=== PATIENT | female | born 1985 | race Caucasian/White ===

== ENCOUNTER 2020-06-27 05:38 | Emergency (ER) | payer OTHER ==
[~2020-06-27 05:38] MED LIST: PERCOCET 5/325 T1 EA PO
[2020-06-27] MEDS ORDERED: IBUPROFEN600 MG PO (07:02)
[2020-06-27] MEDS ORDERED: KEFLEX CAP 250250 MG PO (07:02)
[2020-06-27] MEDS ORDERED: DIFLUCAN150 MG PO (08:16)
== END 2020-06-27 08:26 | disposition home or self-care (01) ==
LOC: ER1 05:38
DX: S01.511A Laceration without foreign body of lip, initial encounter (principal); W22.8XXA Striking against or struck by other objects, initial encounter
CPT/HCPCS: 12011; 70486; 96372; 99283

== ENCOUNTER 2020-10-28 03:53 | Emergency (ER) | payer OTHER ==
[~2020-10-28 03:53] MED LIST changes: +DIFLUCAN150 MG PO; +IBUPROFEN600 MG PO; +KEFLEX CAP 250250 MG PO
[2020-10-28 04:30] LABS: HEMOGLOBIN 14.4 gm/dl (12.3-15.3); RED BLOOD COUNT 4.52 M/UL (4.00-5.10); WHITE BLOOD COUNT 10.4 K/UL (4.5-11.0)
[2020-10-28 04:57] LABS: BUN/CREATININE RATIO 25 (0-10)
[2020-10-28] MEDS ORDERED: REGLAN10 MG PO (05:20)
[2020-10-28] MEDS ORDERED: BENTYL 20MG TAB20 MG PO (05:20)
== END 2020-10-28 05:36 | disposition home or self-care (01) ==
LOC: ER1 03:53
PROVIDERS: Physician Assistant
DX: O20.0 Threatened abortion (principal); O21.9 Vomiting of pregnancy, unspecified; O24.911 Unspecified diabetes mellitus in pregnancy, first trimester; Z90.49 Acquired absence of other specified parts of digestive tract; Z88.0 Allergy status to penicillin; Z88.6 Allergy status to analgesic agent; Z88.2 Allergy status to sulfonamides; Z88.8 Allergy status to other drugs, medicaments and biological substances; Z3A.01 Less than 8 weeks gestation of pregnancy
CPT/HCPCS: 80053; 84702; 85025; 86900; 86901; 96374; 99284; J2765

== ENCOUNTER 2020-11-28 11:17 | Emergency (ER) | payer OTHER ==
[~2020-11-28 11:17] MED LIST changes: +BENTYL 20MG TAB20 MG PO; +REGLAN10 MG PO
[2020-11-28 11:54] LABS: HEMOGLOBIN 13.9 gm/dl (12.3-15.3); RED BLOOD COUNT 4.35 M/UL (4.00-5.10); WHITE BLOOD COUNT 13.7 K/UL (4.5-11.0)
[2020-11-28 12:12] LABS: BUN/CREATININE RATIO 26 (0-10)
[2020-11-28] MEDS ORDERED: NAPROXEN500 MG PO (16:26)
[2020-11-28] MEDS ORDERED: BENTYL 20MG TAB20 MG PO (16:26)
[2020-11-28] MEDS ORDERED: ZOFRAN4 MG PO (16:26)
== END 2020-11-28 16:39 | disposition home or self-care (01) ==
LOC: ER1 11:17
PROVIDERS: Emergency Medicine
DX: N83.201 Unspecified ovarian cyst, right side (principal); E11.9 Type 2 diabetes mellitus without complications; Z90.49 Acquired absence of other specified parts of digestive tract; Z88.0 Allergy status to penicillin; Z88.2 Allergy status to sulfonamides; Z91.041 Radiographic dye allergy status; Z88.1 Allergy status to other antibiotic agents; Z88.6 Allergy status to analgesic agent
CPT/HCPCS: 76830; 80053; 81001; 84703; 85025; 87086; 96374; 96375; 96376; 99284; J2270; J2405

== ENCOUNTER 2021-03-07 18:27 | Emergency (ER) | payer OTHER ==
[~2021-03-07 18:27] MED LIST changes: +NAPROXEN500 MG PO; +ZOFRAN4 MG PO
[2021-03-07] MEDS ORDERED: CLINDAMYCIN HC300 MG PO (22:09)
[2021-03-07] MEDS ORDERED: DIFLUCAN150 MG PO (22:28)
== END 2021-03-07 22:28 | disposition home or self-care (01) ==
LOC: ER1 18:27
DX: J02.9 Acute pharyngitis, unspecified (principal); E11.9 Type 2 diabetes mellitus without complications; F17.200 Nicotine dependence, unspecified, uncomplicated; Z88.0 Allergy status to penicillin; Z88.2 Allergy status to sulfonamides; Z20.822 Contact with and (suspected) exposure to COVID-19; Z88.6 Allergy status to analgesic agent; Z88.1 Allergy status to other antibiotic agents; Z91.041 Radiographic dye allergy status
CPT/HCPCS: 0240U; 87081; 87880; 99283

== ENCOUNTER 2021-04-28 16:46 | Emergency (ER) | payer OTHER ==
[~2021-04-28 16:46] MED LIST changes: +CLINDAMYCIN HC300 MG PO
[2021-04-28] MEDS ORDERED: Voltaren Gel 1% TOP (19:46)
[2021-04-28] MEDS ORDERED: NORFLEX 100 MG100 MG PO (19:46)
== END 2021-04-28 20:00 | disposition home or self-care (01) ==
LOC: ER1 16:46
DX: S40.011A Contusion of right shoulder, initial encounter (principal); W19.XXXA Unspecified fall, initial encounter
CPT/HCPCS: 73030; 99283

== ENCOUNTER 2021-06-05 14:54 | Emergency (ER) | payer OTHER ==
[~2021-06-05 14:54] MED LIST changes: +NORFLEX 100 MG100 MG PO; +Voltaren Gel 1% TOP
[2021-06-05 15:54] LABS: HEMOGLOBIN 16.3 gm/dl (12.3-15.3); RED BLOOD COUNT 5.16 M/UL (4.00-5.10); WHITE BLOOD COUNT 6.9 K/UL (4.5-11.0)
[2021-06-05 16:16] LABS: BUN/CREATININE RATIO 37 (0-10)
== END 2021-06-05 21:05 | disposition home or self-care (01) ==
LOC: ER1 14:54
PROVIDERS: Physician Assistant Medical
DX: J11.1 Influenza due to unidentified influenza virus with other respiratory manifestations (principal); E11.65 Type 2 diabetes mellitus with hyperglycemia; F17.290 Nicotine dependence, other tobacco product, uncomplicated; Z79.84 Long term (current) use of oral hypoglycemic drugs; Z88.2 Allergy status to sulfonamides
CPT/HCPCS: 80053; 81001; 82009; 84703; 85025; 96374; 99283; J2405; J7030